=== PATIENT | female | born 1995 ===

== ENCOUNTER 2025-05-28 07:34 | Outpatient (AMB) | payer OTHER, SELFPAY ==
--- OUTSIDE RECORDS SUMMARY | 2025-05-28 07:35 | XMS_ITS | Clinical Summary ---
Author Organization [place] [address] [facility] Building Address [address] [place] [address] Phone Care Team Providers Care Single Needle Operator Name Role Phone Mariel Romero MD Primary Care Provider [phone] Allergies No known active allergies Medications hydrOXYzine HCL (ATARAX) 25 mg tablet Take 1 Tab by mouth 3 times daily as needed for Anxiety for up to 360 days. 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 Low back pain 06/11/2010 Overview (05/22/2024): MRI 05/15 - small disc herniation T7-T8, Scheurmann's Ds, seen by Ortho, ref to PT Constipation 04/17/2010 Overview (05/22/2024): Miralax 06/17 Wheeze 10/31/2007 Overview (05/22/2024): With URI 10/11, first episode Migraines 02/28/2007 Overview (05/22/2024): 2005, relieved by ricky RONDON update Immunizations Immunization Administration Dates Next Due DTP 10/20/1998, 6,1994,08/20,1994 [id number] (Pentacel) 2mo to less than 5yo 02/14/1995,1994,1994 HPV, Quadrivalent 04/17/2010 Hepatitis B Pediatric (Enger ix B; Recombivax HB) to less than 20 yo 1994,1994,1994 IPV Inactivated polio (Ipol) 6wks and older 04/01/2003,02/14/1995,1994,07/05 Influenza trivalent, with pr eservative (Fluzone; Afluria) 6mo and older 04/17/2010 MMR, measles mumps and rubel la Live (Priorix; M-M-R II) 12mo and older 10/20/1998,05/02/1995 Meningococcal MCV4P 10/31/2007 Tdap Tetanus diptheria acell ular pertussis (Boostrix; Adacel) 7yo and older 09/07/2005 Varicella live (Varivax) 12m o and older 04/17/2010,10/20/1998 Surgical History Surgery Date Site/Laterality Comments OTHER SURGICAL HISTORY 1996 PROCEDURE: HISTORICAL ARM SURGERY; COMMENT: Repair of fracture Medical History Medical History Date Comments Closed fracture of lateral c ondyle of humerus DX:Closed fracture of latera l condyle of humerus; COMMENT: fracture l elbow age 2, had surgery Juvenile osteochondrosis of lower extremity, 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, excluding foot; COMMENT: see resolved problems Overweight(278.02) 10/31/2007 DX:Overweight (278.02); COMMENT: see resolved problem Paresthesia of left leg 03/23/2009 DX:Pares thesia of left leg; COMMENT: see resolved problem Nexplanon insertion 01/30/14 DX:Nexplanon insertion Herpes simplex type 1 antibo dy positive 11/21/2014 DX:Herpes simplex type 1 ant ibody positive Family History Medical History Relation Name Comments Breast cancer Aunt 1 maternal aunt - mother has been tested from BRCA gene and is neg Arthritis Aunt 2 MA Hypertension Brother Hyperlipidemia Father Hypertension Mother Diabetes Paternal Grandmother mgm Other: DVT and Pulmonary Embolism Paternal Grandmother PGM, of PE in 50's Ovarian cancer Neg Hx Pancreatic cancer Neg Hx Uterine cancer Neg Hx Relation Name Status Comments Aunt 1 Aunt 2 Brother Alive 1190-Stefano Father Alive 1971-Stefano Mother Alive 1969- Quy[place] Paternal Grandmother Sister Alive 1986-Rita Social History Tobacco Use Types Packs/Day Years Used Date Smoking Tobacco: Never Smokeless Tobacco: Never Alcohol Use Standard Drinks/Week Comments No 0 (1 standard drink = 0.6 oz pur e alcohol) Comments No Sex and Gender Information Value Date Recorded Sex Assigned at Female 05/27/2024 10:59 PM EST Legal Sex Female 10:04 AM EST Gender Identity Female 05/27/2024 10:59 PM EST Sexual Orientation Not on file Obstetrics History * This document contains information received from the source organization and may not represent a complete record from that organization. Para Term AB IAB SAB Ectopic Multiple Livin g Live Births 1 Date Outcome GA Total Labor Labor/2nd/3rd Weight Sex Type Anes PTL Yane A1 A5 Name Clin Last Filed Vital Signs Vital Sign Reading Time Taken Comments Blood Pressure 114/66 10/26/2024 1:39 PM EDT Pulse 62 10/26/2024 1:39 PM EDT Temperature - - Respiratory Rate - - Oxygen Saturation - - Inhaled Oxygen Concentration - - Weight 86 kg (189 lb 9.6 oz) 10/26/2024 1:39 PM EDT Height 157.5 cm (5' 2 ) 04/25/2023 3:39 PM EST Body Mass Index 34.68 04/25/2023 3:39 PM EST Plan of Treatment Health Maintenance Due Date Last Done Comments HPV Vaccines (2 - 3-dose series) 05/15/2010 04/17/2010 DTaP,Tdap,and Td Vaccines (7 - Td or Tdap) 09/08/2015 09/07/2005, 10/20/1998, 04/02/1996, Additional history exists Social Influencers of Health Screening 05/15/2022 Depression Screening 06/06/2024 COVID-19 Vaccine ( season) 2025 Influenza Vaccine (#1) 2025 04/17/2010 Cervical Cancer Screening: HPV 02/17/2026 02/17/2021 Cholesterol Screening (Lipid Panel) 2028 2023, 04/27/2023 RSV Immunization Adult Patients (1 - 1-dose 75+ series) 2069 Hepatitis B Vaccines Completed 1994, 1994, 1994 HIB Vaccines Aged Out 02/14/1995, 08/04, 1994 No longer eligible based on patient's age to complete this topic MMR Vaccines Completed 10/20/1998, 05/02/1995 IPV Vaccines Completed 04/01/2003, 02/04, 02/14/1995, Additional history exists Meningococcal ACWY Vaccine Aged Out 10/31/2007 N o longer eligible based on patient's age to complete this topic Varicella Vaccines Completed 04/17/2010, 10/20/1998 HIV Screening Completed 10/26/2024, 02/17/2021 Hepatitis C Screening Completed 10/26/2024, 021 Hepatitis A Vaccines Aged Out No long er eligible based on patient's age to complete this topic Meningococcal B Vaccine Aged Out No l onger eligible based on patient's age to complete this topic Pneumococcal Vaccine: Pediatrics (0 to 5 Years) and At-Risk Patients (6 to 49 Years) Aged Out No longer eligible based on patient's age to complete this topic RSV Immunization Patients Under 20 months Aged Out No longer eligible based on patient's age to complete this topic Procedures Procedure Name Priority Date/Time Associated Diagnosis Comments HEPATITIS C ANTIBODY Routine 10/26/2024 2:14 PM EDT Encounter for screening for viral disease HIV 1, 2 ANTIBODY, P24 ANTIGEN WITH REFLEX TO DIFFERENTIATION Routine 10/26/2024 2:14 PM EDT Encounter for screening for viral disease LIPID PANEL Routine 2023 HM HPV Routine 02/17/2021 from Last 3 Months or Most Recently Relevant to Health Maintenance Results * Hepatitis C antibody (10/26/2024 2:14 PM EDT) [facility] Hepatitis C Antibody Negative Negative LAB CHEMISTRY METHOD 10/26/2024 8:00 PM EDT [facility] Blood Venous blood specimen / Unknown Venipuncture / Unknown 10/26/2024 2:14 PM EDT 10/26/2024 2:14 PM EDT [facility] LAB BLOOD ORDERABLES Final Result [facility] [address] [place] [address], [place] [phone] * HIV 1,2 antibody, p24 antigen with reflex to differentiation (10/26/2024 2:14 PM EDT) [facility] HIV Combo AB/AG Negative Negative LAB CHEMISTRY METHOD 10/26/2024 8:03 PM EDT [facility] Blood Venous blood specimen / Unknown Venipuncture / Unknown 10/26/2024 2:14 PM EDT 10/26/2024 2:14 PM EDT Narrative [facility] - 10/26/2024 8:03 PM EDT This assay is a 4th generation assay allowing for earlier detection of HIV infection by detecting the presence of the HIV-1 p24 antigen as well as the traditional antibodies to HIV type 1 (including group O) and type 2. Use of a 4th generation assay is the current CDC recommendation for HIV screening. [facility] LAB BLOOD ORDERABLES Final Result [facility] [address] [place] [address], [place] [phone] * (ABNORMAL) Lipid panel (2023) [facility] Triglycerides 134 0 - 150 mg/dL HDL 49 >=40 mg/dL LDL Cholesterol 147(A) 0 - 100 mg/dL Blood Venous blood specimen / Unknown us Historical Provider LAB BLOOD ORDERABLES Saray l Result * Cervical Cancer Screening: HPV (02/17/2021) Cervical Cancer Screening: HPV negative, abstracted us Historical Provider HEALTH MAINTENANCE Final Result from Last 3 Months or Most Recently Relevant to Health Maintenance Insurance [facility] Care Teams Single Needle Operator Relationship Specialty Start Date End Date Mariel Romero MD [address] [place] [address] PCP - General Internal Medicine 08/13/15
[2025-05-28 07:40] VITALS: BP 112/60; PULSE 105; TEMP 36.9; O2SAT 98; BMI 32.2
--- NOTE | 2025-05-28 07:40 | MHC.OFFWIV ---
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 Patient Tobacco Use Status: Never used Tobacco Allergies No Known Allergies Allergy (Verified 05/28/25 07:42) Do you need a note to return to daycare/school/sports/work: Yes HPI HPI Comments History of Present Illness Details History - The patient is a 30-year-old female presenting with a sore throat and fever for 3 days. - Her symptoms began on Tuesday night and have gradually worsened over three days. - She has been experiencing an intermittent fever since Tuesday night, with a maximum temperature recorded at 101.8?F, which fluctuates down to 98?F. - Associated symptoms include one episode of vomiting this morning with nausea, and some sinus pain that is not currently present. - She reports that she has been able to eat and drink and has not lost her appetite. - She has been taking DayQuil and NyQuil for symptom management. - Her medical history is negative for asthma, COPD, smoking, or vaping. [facility] Social History Patient Tobacco Use Status: Never used Tobacco Review of Systems Narrative Review of Systems - Constitutional: Reports intermittent fever up to 101.8?F since Tuesday night. - HEENT: Reports a sore throat. Reports minor, intermittent sinus pain which is not present now. - Respiratory: Denies shortness of breath and wheezing. - Gastrointestinal: Reports nausea with one episode of emesis this morning. Denies loss of appetite. All systems reviewed and are unremarkable except as noted in HPI Physical Exam Exam Exam: Physical Exam General: Cooperative, healthy appearing, comfortable and no acute distress Orientation/consciousness: Patient oriented x3 Limitations: No limitations Head: Normal to inspection Ears: Hearing grossly normal bilaterally, EAC's with erythema bilaterally and TM's normal bilaterally Nose: Normal external nose present, Normal nares present and No nasal discharge present Face and sinus: Normal facial exam and sinuses nontender Mouth: Normal oral and palatal mucosa present and moist mucous membranes Throat: tonsils normal, no exudates, uvula midline, mild posterior oropharynx erythema Eyes: Appearance normal, both eyes and all related structures Neck: Normal visual inspection, full ROM Respiratory: Clear to auscultation bilaterally. Normal respiratory effort, able to speak in complete sentences, no respiratory distress, not tachypneic, no tripod positioning and no use of accessory muscles Cardiovascular: Regular rate and rhythm. Normal S1 and S2 Skin: No rashes or lesions noted Neuro: Patient oriented x3 Extremities: Normal to inspection and Yes no clubbing, cyanosis or edema Vital Signs: Last Vital Signs Temp 98.4 F 05/28/25 07:40 Pulse 105 H 05/28/25 07:40 BP 112/60 05/28/25 07:40 Pulse Ox 98 05/28/25 07:40 Oxygen Delivery Method Room Air 05/28/25 07:40 BMI result Body Mass Index 32.2 Assessment & Plan Assessment & Plan (1) Acute viral syndrome: Code(s): B34.9 - Viral infection, unspecified Plan: Patient was informed and verbally consented to the use of an ambient scribe for clinic note documentation during this visit. - VSS, pt well appearing and PE unremarkable. - The patient's presentation of fever, sore throat, and constitutional symptoms are consistent with a viral syndrome, with influenza being a primary consideration. - A flu, covid and rsv swab has been performed. - If the influenza test is positive, a prescription for Tamiflu will be called into the patient's pharmacy, [facility]. - The patient was educated that Tamiflu is an antiviral that helps lessen the severity and duration of symptoms but does not cure the illness. - For symptomatic control, advised to continue with [id number] medications and supplement with Tylenol up to 1000 mg every 8 hours for fever, as the amount in combination products may be insufficient. - The patient received education on emergency department precautions, including difficulty breathing, chest pain or pressure, persistent dizziness, confusion, or seizures. - A work note will be provided as requested. (2) Tachycardia, unspecified: Code(s): R00.0 - Tachycardia, unspecified Plan: - HR regular but tachycardic likely 2/2 dehydration. - The patient has experienced nausea with one episode of vomiting. - A prescription for ondansetron (Zofran) was sent to the pharmacy to be taken every 8 hours as needed for nausea to aid in hydration. - The patient exhibits signs of dehydration, as indicated by a heart rate over 100 bpm. - Advised to prioritize staying well-hydrated by drinking fluids such as Gatorade and water to help lower her heart rate. Orders: Orders SARS-CoV2/FLU/RSV Today R09.89 - Other specified symptoms and signs involving the circulatory and respiratory systems Medications: New ondansetron 4 mg PO Q8H PRN 10 tabs 0RF nausea and vomiting Coding Level of Care Code New Pt Level 3 (81279) Diagnoses Acute viral syndrome B34.9 Tachycardia, unspecified R00.0
== END 2025-05-28 08:35 | disposition home or self-care (01) ==
PROVIDERS: PCP Physician Assistant; Visit Provider Physician Assistant
DX: B34.9 Viral infection, unspecified (principal); R00.0 Tachycardia, unspecified

== ENCOUNTER 2025-05-28 07:34 | Outpatient (REF) | payer OTHER, SELFPAY ==
[2025-05-28 11:54] LABS: Resp Syncy Virus RNA Qual PCR NEGATIVE (Negative); SARS COV2 PCR INHOUSE NEGATIVE (Negative)
== END 2025-05-28 07:35 | disposition home or self-care (01) ==
LOC: HO.LNP 07:34
PROVIDERS: Physician Assistant; PCP Physician Assistant
DX: R09.89 Other specified symptoms and signs involving the circulatory and respiratory systems (principal); R00.0 Tachycardia, unspecified; R50.9 Fever, unspecified; R11.2 Nausea with vomiting, unspecified
CPT/HCPCS: 87637